=== PATIENT | male | born 1955 | race Caucasian/White ===

== ENCOUNTER → 2017-01-31 | Outpatient (CLI) | payer SELFPAY ==
--- NOTE | 2017-01-31 15:01 | RAD ---
Examination: Left knee, two views History: Osteoarthritis Findings: AP and lateral views demonstrate normal bone density. There is no evidence for trauma, bone destruction or specific arthropathy. The patella is in normal position, and there is no evidence for synovial effusion. Articular spaces are maintained. Impression: No acute or significant abnormality demonstrated. Reported By:
--- NOTE | 2017-01-31 15:01 | RAD ---
Examination: Chest, PA and lateral views History: Tobacco abuse Comparison reference: None Findings: Normal heart size. The lungs are symmetrically hyperaerated. There is a diffuse and bilater al interstitial prominence without evidence for superimposed consolidation, mass or pleural fluid. Impression: No acute process identified. Findings described consistent with COPD and chronic peribron chial thickening. Reported By:
== END | disposition home or self-care (01) | DRG 554 ==
LOC: RAD 14:16
PROVIDERS: ATTEND Nurse Practitioner Family
DX: M17.12 Unilateral primary osteoarthritis, left knee (principal); I87.2 Venous insufficiency (chronic) (peripheral); Z71.6 Tobacco abuse counseling
CPT/HCPCS: 71020; 73560

== ENCOUNTER → 2017-02-02 | Outpatient (CLI) | payer SELFPAY ==
--- NOTE | 2017-02-02 10:47 | VAS ---
History: Left knee pain for 2 months Study: Doppler ultrasound of the deep veins of the left lower extremity Comparison: None Findings: The deep veins were imaged from the common femoral vein to the popliteal vein. There is nor mal compression and phasic Doppler flow and augmentation. Impression: No evidence for deep venous thrombosis in the left lower extremity Reported By:
== END ==
LOC: RAD 09:02
PROVIDERS: ATTEND Nurse Practitioner Family
DX: I87.2 Venous insufficiency (chronic) (peripheral) (principal)
CPT/HCPCS: 93971